=== PATIENT | female | born 1995 | race Caucasian/White ===

== ENCOUNTER 2018-08-22 22:50 | Emergency (ER) | payer MEDICAID, SELFPAY ==
[2018-08-22] MEDS ORDERED: Acetaminophen 500 MG TAB ONE (23:09)
[2018-08-22 23:16] LABS: Bilirubin Negative (Negative); Blood, Urine Negative (Negative); Clarity CLEAR (Clear); Glucose, Urine (Dipstick) Negative (Negative); Leukocyte Negative (Negative); Nitrite Negative (Negative); Protein, Urine (Dipstick) Negative (Neg-Trace); Specific Gravity, Urine 1.006 (1.002-1.036); Urobilinogen 0.2 mg/dL (0.2-1.0); pH, Urine 7.5 (5.0-9.0)
[2018-08-22 23:27] LABS: #Basophils 0.1 thou/uL (0.0-0.2); #Eosinphils 0.3 thou/uL (0.0-0.7); #Lymphocytes 2.9 thou/uL (1.20-3.40); #Monocytes 0.8 thou/uL (0.11-0.59); #Neutrophils 9.2 thou/uL (1.40-6.50); %Basophils 0.7 % (0.0-1.0); %Eosinophils 2.5 % (0.0-10.0); %Lymphocytes 21.8 % (21.0-51.0); %Monocytes 5.9 % (0.0-10.0); %Neutrophils 69.1 % (42.0-75.0); Mean Corpuscular Hemoglobin 29.6 pg (27.0-31.0); Mean Corpuscular Volume 89.5 fL (78.0-98.0); Mean Platelet Volume 8.8 fL (7.4-10.4); Platelet Count 238 thou/uL (130-400); RBC Distribution Width 12.5 % (11.5-14.5); White Blood Cell (WBC) Count 13.3 thou/uL (4.8-10.8)
[2018-08-22 23:49] LABS: ALT (SGPT) 10 U/L (8-55); AST (SGOT) 11 U/L (5-34); Albumin 3.8 g/dL (3.5-5.0); Alkaline Phosphatase 57 U/L (40-150); Anion Gap 10 mmol/L (10-20); BUN (Urea Nitrogen) 6 mg/dL (7.0-18.7); Bilirubin, Total 0.4 mg/dL (0.2-1.2); Calc. Creatinine Clearance 0 mL/min (70-130); Calcium 9.1 mg/dL (7.8-10.44); Carbon Dioxide 24 mmol/L (22-29); Chloride 106 mmol/L (98-107); Estimated GFR-MDRD Greater than 90; Globulin 2.6 g/dL (2.4-3.5); Glucose 96 mg/dL (70-105); Lipase 17 U/L (8-78); Potassium 3.8 mmol/L (3.5-5.1); Protein, Total 6.4 g/dL (6.0-8.3); Sodium 136 mmol/L (136-145)
--- NOTE | 2018-08-23 08:00 | ULT ---
GALLBLADDER ULTRASOUND: History: Right upper quadrant pain. FINDINGS: Gallbladder has a normal appearance. No evidence of gallstones. Visualized liver is unremarkable. Com mon duct normal caliber. Pancreas is partially obscured but is unremarkable as visualized. Right kidn ey unremarkable. IMPRESSION: Unremarkable gallbladder ultrasound. POS: [facility]
--- NOTE | 2018-08-23 08:00 | ULT ---
PRELIMINARY REPORT/[facility]/EMERGENTY AFTER-HOURS PROCEDURE US First Trimester, Transabdominal and US , Transvaginal EXAM DATE/TIME: 08/23/2018 12:01 AM CLINICAL HISTORY: 23 years old, female; Pain and signs and symptoms; Lmp or gestational age (in weeks): 6w4d; Antepartu m complications; Other: N/v; complicated by abdominal or pelvic pain; Lower; First trimeste r; TECHNIQUE: Real-time transabdominal obstetrical ultrasound of the maternal pelvis and a first trimester pregnanc y, less than 14 weeks 0 days, with image documentation. Transvaginal imaging was used for better eval uation of the fetus and adnexa. COMPARISON: No relevant prior studies available. FINDINGS: Single living intrauterine fetus. [place] rump length of 6-7 mm estimates age at 6 weeks, 4 days. heart activity documented by the technologist, 116 bpm. Maternal ovaries/adnexa unremarkable. Blood flow detected in each ovary. The urinary bladder was not completely evaluated/imaged at this time. Endovaginal scanning provided better visualization/evaluation of the gestational sac and contents, an d heart activity, as discussed above. IMPRESSION: 1. Single living intrauterine fetus, 6 weeks, 4 days estimated age. 2. Other details discussed above. Thank you for allowing us to participate in the care of your patient. Dictated and Authenticated by: Arpan Rodriguez MD 08/23/2018 1:13 AM Central Time ([place] & [place]) FINAL REPORT EMERGENCY AFTER HOURS ULTRASOUND PELVIC TRANSVAGINAL WITH DOPPLER: Date: 08/22/18 FINDINGS: I agree with the preliminary report provided by Adebayo. There is a single, live intrauterine gestation, with estimated gestational age of 6 weeks and 4 days. Uterus measures 8.4 x 4.7 cm. Right ovary ck ures 2.4 x 1.4 x 1.9 cm. Left ovary measures 4.2 x 2.0 x 3.5 cm. There is normal vascular flow to bot h ovaries on spectral Doppler evaluation. No definite free fluid is evident. IMPRESSION: I agree with the preliminary report provided by Adebayo. Single, live intrauterine gestation. POS: [facility]
[2018-08-24 01:20] LABS: Chlamydia by PCR Not Detected (NotDetected); GC by PCR Not Detected (NotDetected)
== END 2018-08-23 00:43 | disposition home or self-care (01) ==
LOC: ERS 22:50
DX: O21.9 Vomiting of pregnancy, unspecified (principal); O99.89 Other specified diseases and conditions complicating pregnancy, childbirth and the puerperium; R10.84 Generalized abdominal pain; O99.331 Smoking (tobacco) complicating pregnancy, first trimester; F90.9 Attention-deficit hyperactivity disorder, unspecified type; F31.9 Bipolar disorder, unspecified; Z3A.01 Less than 8 weeks gestation of pregnancy
CPT/HCPCS: 36415; 76705; 76856; 80053; 81003; 83690; 84702; 85025; 87480; 87491; 87510; 87591; 87660

== ENCOUNTER 2019-01-18 03:50 | Day surgery (SDC) | payer OTHER ==
[2019-01-18 04:31] VITALS: BP 107/64; TEMP 98.9; BMI 35.1
[2019-01-18] MEDS ORDERED: hydrALAZINE 20 MG/ML VIAL SLOW IVP PRN (05:43)
--- NOTE | 2019-01-18 07:03 | PRG ---
DATE OF SERVICE: 01/18/2019 PRIMARY OB: clinic. CHIEF COMPLAINT: Vaginal discharge and contractions. HISTORY OF PRESENT ILLNESS: The patient is a 23-year-old G3, P1 female with an intrauterine at 28 weeks and 3 days, who is presenting to Labor and Delivery with complaints of 3 contractions that she felt last night and a glob of mucousy discharge this morning when she went to go to bathroom. The patient denies any contractions since then or any other discharge. The patient has recently been released from skilled nursing and has not yet reestablished care with the clinic, but reports that she had been seen by them while she was in skilled nursing. The patient denies any abdominal pains, vaginal bleeding, leakage of fluid, any other change in her discharge. She denies any fever, fall, headache, chest pain, shortness of breath, nausea, vomiting, diarrhea, constipation, hip problems, knee problems, muscle weakness. She denies urinary urgency or frequency. PAST MEDICAL HISTORY: Negative. PAST SURGICAL HISTORY: She has had 1 prior . ALLERGIES: SULFA DRUGS. MEDICATIONS: vitamins. SOCIAL HISTORY: Reports 1 pack per day use of tobacco. Denies drugs or alcohol. OB LABS: Unavailable. REVIEW OF SYSTEMS: Per HPI. PHYSICAL EXAMINATION: VITAL SIGNS: Blood pressure 107/64, heart rate of 72, respiratory rate 18, saturating 99% to 100% on room air, and temperature 99.2. GENERAL: She appears to be in no acute distress. She is alert, oriented, cooperative, and pleasant to interact with. HEAD: Normocephalic and atraumatic. LUNGS: Clear to auscultation bilaterally. HEART: Regular rate and rhythm. ABDOMEN: Soft and gravid. EXTREMITIES: Nontender and nonedematous. VULVA: Without masses, lesions, or erythema. VAGINA: Moist with no appreciable discharge. CERVIX: Visibly closed with a clear mucus visible at the os. heart tracing shows a baseline in the 130s with moderate long-term variability, positive accelerations, no decelerations. Tocometer showing no contractions visible. VPIII and GC chlamydia were collected and sent. ASSESSMENT AND PLAN: The patient is a 23-year-old female presenting for a single episode of discharge and isolated contractions have now spontaneously resolved. VPIII and GC chlamydia have been sent pending results. The patient has been discharged to home. She has instructions to follow up with the clinic and reestablish care with them. Fetus has a reactive NST and category 1 tracing. Job ID: [id number]
[2019-01-20 20:36] LABS: Chlamydia by PCR Not Detected (NotDetected); GC by PCR Not Detected (NotDetected)
== END 2019-01-18 05:55 | disposition home or self-care (01) ==
LOC: L&D/OP 03:50
PROVIDERS: ATTEND Obstetrics & Gynecology
DX: O99.89 Other specified diseases and conditions complicating pregnancy, childbirth and the puerperium (principal); N89.8 Other specified noninflammatory disorders of vagina; O47.03 False labor before 37 completed weeks of gestation, third trimester; O99.333 Smoking (tobacco) complicating pregnancy, third trimester; F17.210 Nicotine dependence, cigarettes, uncomplicated; Z3A.28 28 weeks gestation of pregnancy
CPT/HCPCS: 87480; 87491; 87510; 87591; 87660; 99284